=== PATIENT | female | born 1985 | race Caucasian/White ===

== ENCOUNTER → 2017-10-26 16:32 | Outpatient (CLI) | payer OTHER, SELFPAY ==
[2017-10-31 12:41] LABS: HPV APTIMA, High Risk Negative (Negative)
== END ==
PROVIDERS: Visit Provider Obstetrics & Gynecology
DX: Z12.4 Encounter for screening for malignant neoplasm of cervix (principal)
CPT/HCPCS: 88175; G0145

== ENCOUNTER 2018-02-20 16:48 | Outpatient (RCR) | payer OTHER, SELFPAY | END 2018-02-24 23:59 | LOC: NS 16:48 | PROVIDERS: Family Provider Internal Medicine; PCP Internal Medicine; Visit Provider Internal Medicine | DX: E66.9 Obesity, unspecified (principal); Z68.35 Body mass index [BMI] 35.0-35.9, adult; Z71.3 Dietary counseling and surveillance | CPT/HCPCS: 97802 ==

== ENCOUNTER 2018-03-19 16:30 | Outpatient (RCR) | payer OTHER, SELFPAY | END 2018-03-27 23:59 | LOC: NS 16:30 | PROVIDERS: Family Provider Internal Medicine; PCP Internal Medicine; Visit Provider Internal Medicine | DX: E66.9 Obesity, unspecified (principal); Z68.35 Body mass index [BMI] 35.0-35.9, adult; Z71.3 Dietary counseling and surveillance | CPT/HCPCS: 97803 ==

== ENCOUNTER → 2018-03-29 16:19 | Outpatient (CLI) | payer OTHER, SELFPAY ==
--- NOTE | 2018-03-29 16:21 | US_ITS ---
STUDY: SUPERFICIAL ULTRASOUND - RIGHT WRIST REASON FOR EXAM: Female, 32 years old. Palpable nodule TECHNIQUE: A superficial ultrasound was performed with real-time and static jimenez-scale imaging. COMPARISON: None. FINDINGS: No definite cystic or solid masses are observed.. It would be difficult to exclude possibility of lipoma and MRI would be helpful for more definitive evaluation US/Ext Non Vasc Limited/Soft Tiss IMPRESSION: No definitive sonographic evidence for solid or cystic mass MRI recommended for more definitive evaluation Electronically Signed: Candelario Pantoja MD at 17:02 EDT , Service support ,
== END ==
PROVIDERS: Family Provider Internal Medicine; PCP Internal Medicine; Visit Provider Orthopaedic Surgery
DX: M25.831 Other specified joint disorders, right wrist (principal)
CPT/HCPCS: 76882

== ENCOUNTER 2018-04-03 08:15 | Outpatient (RCR) | payer OTHER, SELFPAY | END 2018-04-03 23:59 | LOC: NS 08:15 | PROVIDERS: Family Provider Internal Medicine; PCP Internal Medicine; Visit Provider Internal Medicine | DX: E66.9 Obesity, unspecified (principal); Z68.35 Body mass index [BMI] 35.0-35.9, adult; Z71.3 Dietary counseling and surveillance | CPT/HCPCS: 97803 ==

== ENCOUNTER → 2018-04-17 16:53 | Outpatient (CLI) | payer OTHER, SELFPAY | PROVIDERS: Family Provider Internal Medicine; PCP Internal Medicine; Visit Provider Orthopaedic Surgery | DX: M25.831 Other specified joint disorders, right wrist (principal) | CPT/HCPCS: 73221 ==

== ENCOUNTER 2018-05-15 08:51 | Outpatient (RCR) | payer OTHER, SELFPAY | END 2018-05-27 23:59 | LOC: NS 08:51 | PROVIDERS: Family Provider Internal Medicine; PCP Internal Medicine; Visit Provider Internal Medicine | DX: E66.9 Obesity, unspecified (principal); Z68.35 Body mass index [BMI] 35.0-35.9, adult; Z71.3 Dietary counseling and surveillance ==

== ENCOUNTER → 2018-07-04 14:27 | Outpatient (CLI) | payer OTHER, SELFPAY ==
--- NOTE | 2018-07-04 15:43 | NEURO ---
NCS and/or EMG Patient Report Ordering Doctor: Svitlana Cook DATE OF SERVICE: 07/04/18 Torrie Shelton is a 33-year-old female presents for electrodiagnostic testing of the right upper limb. She has chief complaint of numbness and tingling in the right hand. Electrodiagnostic findings: The right median motor nerve demonstrates prolonged distal latency with normal amplitude and conduction velocity. Normal right ulnar motor response. Prolonged right median F wave. Absent right median sensory latency at the wrist. Prolonged right median palmar latency. Normal right ulnar and radial sensory responses. On needle EMG testing, all muscles tested in the right upper limb show no evidence of denervation with normal motor unit action potentials. Electrodiagnostic impression: This is an abnormal study in the right upper limb. 1. Electrodiagnostic findings demonstrate right-sided median mononeuropathy. This is consistent with a moderate to advanced right carpal tunnel syndrome. If there are any further questions, please do not hesitate to contact me
== END ==
PROVIDERS: Family Provider Internal Medicine; PCP Internal Medicine; Referring Provider Orthopaedic Surgery; Visit Provider Orthopaedic Surgery
DX: G56.01 Carpal tunnel syndrome, right upper limb (principal)
CPT/HCPCS: 95886; 95909

== ENCOUNTER 2018-09-25 11:05 | Day surgery (SDC) | payer OTHER, SELFPAY ==
[2018-09-25 11:46] VITALS: BP 122/81; PULSE 79; RESP 16; TEMP 37.5; O2SAT 96; BMI 35.6
[2018-09-25 11:46] LABS: Hematocrit 43.7 % (37-47); Hemoglobin 14.4 g/dl (12.0-15.0); Mean Corpuscular Hgb 28.2 pg (27.0-32.0); Mean Corpuscular Volume 85.7 fL (81-99); Mean Platelet Vol. 8.9 fl (6.2-12.0); Platelet Count 343 K/mm3 (150-450); RBC Distribution Width CV 13.2 % (11.6-14.6); RBC Distribution Width SD 41.5 fl (35.1-43.9); Scan Indicated on CBC? Y/N NO; White Blood Count 6.2 K/mm3 (4.4-11.0)
[2018-09-25 12:00] LABS: AST(SGOT) 12 U/L (15-37); Alanine Aminotransfer ALT/SGPT 27 U/L (13-56); Albumin, Serum 3.8 g/dL (3.2-5.0); Alkaline Phosphatase 74 U/L (45-117); Anion Gap 8 (5-15); BUN 10 mg/dL (7-18); Calcium,Total 8.4 mg/dL (8.5-10.1); Chloride 108 mmol/L (98-107); Creatinine, Serum 0.71 mg/dL (0.55-1.02); EST Glomerular Filtration Rate 101 mL/min (>60); Est Glom Filt Rate - Afr Amer 122 mL/min (>60); Estimated Creatinine Clearance 102.36 ml/min; Globulin 3.7 g/dL (2.2-4.2); Glucose 85 mg/dL (74-106); Potassium 3.8 mmol/L (3.5-5.1); Protein, Total 7.5 g/dL (6.4-8.2); Sodium Level 139 mmol/L (136-145)
[2018-09-25 12:20] LABS: Pregnancy, Serum, hCG Quali. NEGATIVE Negative (0-9 Nonpreg)
[2018-09-25] MEDS: Bupivacaine 0.5% PF 10 ML VIAL (12:49)
[2018-09-25] MEDS: MethylPREDNISolone Acetate 80 MG/ML Vial (12:49)
[2018-09-25] MEDS: Bupiv/Epi 0.5% Mpf 30 ML Vial (13:00)
--- NOTE | 2018-09-25 13:24 | PCM.DC.ORTHO ---
Discharge Diet: Light diet - advance as tolerated Discharge Activity: - - 1/2 pound restriction to right upper extremity. Encourage finger range of motion. Keep dressing on for 48 hours clean and dry then may remove and wash daily gently but do not submerge underwater until seen in the office. Elevate hand and extremity above heart times 72 hours Call your doctor if you observe: Fever of 101 or Higher, Inability to urinate, Inability to have a bowel movement, Using more than one pad per hour, Shortness of breath Suture Line Care: Avoid Pulling/Pushing Allergies/Adverse Reactions: Allergies Penicillins Allergy (Verified 09/18/18 09:26) Hives Medications to take at Discharge levonorgestrel 20 mcg/24 hr (5 years) intrauterine device 1 insert INTRAUTERINE ONCE 10/25/17 Albuterol Sulfate [Ventolin Hfa] 2 puff INHALATION ONCE PRN 09/18/18 Naproxen Sodium [Aleve] 220 mg PO PRN PRN 09/18/18 Primary Care Physician: Padmini Osuna MD [Primary Care Provider] - Test Results: Test results from this visit will be discussed in further detail at your follow-up appointment, if applicable. Please Follow Up With: Vinay Feliciano DO When: 2 weeks
[2018-09-25 13:25] VITALS: BP 118/77; BP 122/81; PULSE 92; RESP 16; TEMP 36.3; O2SAT 96
--- NOTE | 2018-09-25 13:28 | DCINST_ITS ---
Discharge Diet: Light diet - advance as tolerated Discharge Activity: - - 1/2 pound restriction to right upper extremity. Encourage finger range of motion. Keep dressing on for 48 hours clean and dry then may remove and wash daily gently but do not submerge underwater until seen in the office. Elevate hand and extremity above heart times 72 hours Call your doctor if you observe: Fever of 101 or Higher, Inability to urinate, Inability to have a bowel movement, Using more than one pad per hour, Shortness of breath Suture Line Care: Avoid Pulling/Pushing Allergies/Adverse Reactions: Allergies Penicillins Allergy (Verified 09/18/18 09:26) Hives Medications to take at Discharge levonorgestrel 20 mcg/24 hr (5 years) intrauterine device 1 insert INTRAUTERINE ONCE 10/25/17 Albuterol Sulfate [Ventolin Hfa] 2 puff INHALATION ONCE PRN 09/18/18 Naproxen Sodium [Aleve] 220 mg PO PRN PRN 09/18/18 Primary Care Physician: Padmini Osuna MD [Primary Care Provider] - Test Results: Test results from this visit will be discussed in further detail at your follow- up appointment, if applicable. Please Follow Up With: Vinay Feliciano DO When: 2 weeks
[2018-09-25 13:30] VITALS: BP 113/73; BP 122/81; PULSE 87; RESP 16; O2SAT 95
--- NOTE | 2018-09-25 13:31 | PCM.OPRPT ---
Report of Operation Date of Procedure: 09/25/18 Pre-Operative Diagnosis: Bilateral carpal tunnel syndrome Post-Operative Diagnosis: Same Surgery/Procedure Performed:: Open carpal tunnel release right. Carpal tunnel injection with steroid left Description of Surgical Findings:: Preoperative diagnosis; bilateral carpal tunnel syndrome Postoperative diagnosis; same Anesthesia: Local with MAC Tourniquet time; 13 minutes Indication for procedure; This is a 33-year-old female with long-standing symptoms consistent with carpal tunnel syndrome she did have electrodiagnostic evidence of this and has failed conservative treatment. Risks benefits and alternatives were reviewed including risks of bleeding infection nerve artery tissue damage need for further surgery and continued pain and symptoms, hypersensitivity to scar and Pillar pain. Procedure; The patient was met in the preoperative holding area the operative extremity was identified by both patient and physician and was marked she was met by anesthesia and brought back to the operating room and transferred to the operating table in the supine position anesthesia was started. A well-padded tourniquet was placed on the right upper extremity. She was prepped and draped in the usual sterile fashion. Timeout was called to ensure the proper patient procedure and extremity were being contemplated. Quarter percent Marcaine with epinephrine was injected into the incisional area. An Esmarch was used to exsanguinate the extremity. The tourniquet was inflated to 250 mmHg. A midline incision was made with a 15 blade scalpel between the thenar and hypothenar eminence. This was carried down through the skin and subcutaneous tissue. Jory retractors were then used, a deep blade scalpel was used to make a deep incision in the palmar aponeurosis. The jory retractors were then placed deep to this and the transverse carpal ligament was identified a perforation was made with a scalpel and a Metzenbaum scissors were used to complete the release of the transverse carpal ligament distally under direct visualization until the perivascular fat was reached. Then turning our attention proximally using a tension slide technique the proximal extent of the transverse carpal ligament was released there was noted to be flattening of the median nerve. The wound was thoroughly irrigated and was closed with 4-0 Prolene vertical mattress stitches. Dressing was applied in the form of Xeroform 4 x 4 web roll and an Blayne wrap tourniquet was let down there is no intraoperative complications patient tolerated the procedure well. Her left hand was then prepped with alcohol and 40 mg of Depo-Medrol and 1 cc of 0.5% Marcaine plain was injected into the carpal tunnel on the left hand. Patient was transferred to the PACU in stable condition. All counts were correct.
[2018-09-25 13:35] VITALS: BP 105/66; BP 122/81; PULSE 77; RESP 18; O2SAT 95
[2018-09-25 13:40] VITALS: BP 114/75; BP 122/81; PULSE 76; RESP 16; TEMP 36.3; O2SAT 95
[2018-09-25 14:06] VITALS: BP 122/81
== END 2018-09-25 14:33 | disposition home or self-care (01) ==
LOC: SDC 11:05 → AC 11:07
PROVIDERS: Anesthesiology; Family Provider Internal Medicine; PCP Internal Medicine; Referring Provider Orthopaedic Surgery; Visit Provider Orthopaedic Surgery
PROC: (CPT 64721; principal; 2018-09-25 12:30)
DX: G56.03 Carpal tunnel syndrome, bilateral upper limbs (principal); K21.9 Gastro-esophageal reflux disease without esophagitis; Z87.891 Personal history of nicotine dependence; J45.909 Unspecified asthma, uncomplicated
CPT/HCPCS: 20526; 64721; 80053; 84703; 85027; J7120

== ENCOUNTER → 2020-07-01 14:00 | Outpatient (CLI) | payer OTHER, SELFPAY ==
[2020-04-27 15:24] VITALS: BMI 35.6
--- NOTE | 2020-07-01 14:55 | NEURO_ITS ---
NCS and/or EMG Patient Report Ordering Doctor: Vinay Feliciano DATE OF SERVICE: 07/01/20 Torrie Shelton presents for electrodiagnostic testing of the left upper limb. She reports weakness in the left hand with pain radiating up to the shoulder. She reports numbness and tingling in the hand. Electrodiagnostic findings: Left median motor nerve demonstrates prolonged distal latency with normal amplitude and reduced conduction velocity. Left ulnar motor responses within normal limits. Prolonged left median F wave. Absent left median sensory response at the wrist and palm. Normal ulnar and radial sensory responses. On needle EMG, 1+ fibrillations are noted in the left triceps, left pronator teres. No denervation identified in the cervical paraspinals. Electrodiagnostic impression: This is an abnormal study in left upper limb. 1. Electrodiagnostic findings demonstrate left-sided median mononeuropathy. T his is consistent with a moderate to advanced left carpal tunnel syndrome. 2. Findings are suggestive of denervation in the left C7 distribution. As there is no denervation noted in the paraspinals, a definitive diagnosis of radiculopathy cannot be made. However, the patient does have clinical evidence of left triceps weakness so would give consideration of cervical spine imaging if symptoms continue. If there are any further questions, please not hesitate to contact me.
== END ==
PROVIDERS: PCP Internal Medicine; Referring Provider Orthopaedic Surgery; Visit Provider Orthopaedic Surgery
DX: G56.02 Carpal tunnel syndrome, left upper limb (principal)
CPT/HCPCS: 95886; 95910

== ENCOUNTER 2020-09-08 06:06 | Day surgery (SDC) | payer OTHER, SELFPAY ==
[2020-04-27 15:24] VITALS: BMI 35.6
[2020-09-08] VITALS (7 sets, daily range): BP systolic 96–122; BP diastolic 52–73; PULSE 75–97; RESP 16; TEMP 36.3–36.9; O2SAT 94–97; BMI 38.3
[2020-09-08] MEDS: Lactated Ringers 1,000 ML 100 ML IV (07:08)
--- NOTE | 2020-09-08 07:16 | PCM.HP.BLA ---
History and Physical Date of Admission: 09/08/20 Intake Intake Visit Reasons: LEFT WRIST Chief Complaint: left wrist Accompanied by: self Is patient in pain?: Yes Allergies Penicillins Allergy (Verified 04/17/20 13:27) Hives Medications albuterol sulfate 90 mcg/actuation aerosol inhaler 2 puff INHALATION Q8H PRN #8.5 g 10/29/19 [Rx Confirmed 08/03/20] norgestimate-ethinyl estradiol 0.18 mg/0.215mg/0.25mg-35 mcg(28)tablet 1 tab PO DAILY 08/03/20 [History Confirmed 08/03/20] [facility] Medical History (Updated 10/30/19 @ 11:40 by Richard Ward PATIENT INTAKE REPRESENTATIVE, PATIENT INTAKE REPRESENTATIVE-C) History of pilonidal cyst (Acute) Carpal tunnel syndrome (Chronic) Asthma (Chronic) Seasonal allergies (Chronic) Surgical History (Updated 10/29/19 @ 16:26 by Radha Doll) H/O wisdom tooth extraction (Acute) History of (Acute) History of carpal tunnel release (Acute) History of tonsillectomy (Acute) Family History Mother Hypertension Arthritis Crohns disease Grandmother Breast cancer Diabetes Grandfather Heart disease Myocardial infarction, Onset Age: 70 Social History (Updated 08/03/20 @ 16:[address] Vinay Feliciano DO) Smoking Status: Former smoker Tobacco: How many years used: 12 alcohol intake: never substance use type: does not use what type of physical activity do you participate in: none HPI LEFT WRIST: Details: Parts of this documentation were recorded by a scribe, this documentation accurately reflects the service provided and the decisions made by me, Dr. Vinay Feliciano DO 08/03/20 0800. BILLIE HAN is a 35 year old F here today for F/U on left hand 1st, 2nd and 3rd finger which she has had for about 1 year now. She is here to go over the EMG of her left upper extremity. To recall she did have carpal tunnel release of her right hand back in AugustTo recall she did have carpal tunnel release of her right hand back in Early 2018 with good success. Ortho Exam General General: Yes no acute distress Neurologic: Yes alert Psychologic: Yes reasonable and appropriate Right Wrist/Hand Skin/Wound: No Swelling, No Ecchymosis Left Wrist/Hand Skin/Wound: No Swelling, No Ecchymosis, Yes capillary refill normal, No erythema Left Wrist: Yes Durken's Test, Yes Tinel's and Yes Phalen's Sensation: Radial: I, Ulnar: I, Median: I Supplemental Info EMG/NCV Electrodiagnostic impression: This is an abnormal study in left upper limb. 1. Electrodiagnostic findings demonstrate left-sided median mononeuropathy. This is consistent with a moderate to advanced left carpal tunnel syndrome. 2. Findings are suggestive of denervation in the left C7 distribution. As there is no denervation noted in the paraspinals, a definitive diagnosis of radiculopathy cannot be made. However, the patient does have clinical evidence of left triceps weakness so would give consideration of cervical spine imaging if symptoms continue. Assessment & Plan Problems 1. Left carpal tunnel syndrome G56.02 Plan Patient educated that she has moderate to severe carpal tunnel syndrome of the left wrist along with some possible C-7 nerve impingement but most of her symptoms appear to be from the carpal tunnel syndrome. Recommended a left carpal tunnel release. Educated that she will have pain after surgery from the incision and the numbness and tingling will take time to return if the sensation returns. She will have restrictions for about 3 weeks. She wishes to proceed with left carpal tunnel release. Reviewed the pre-operative plans with the patient. Risks and benefits of the procedure were fully explained, including but not limited to infection, neurovascular injury, continued pain, arthritis, stiffness, need for further surgery, re-injury, DVT, PE, general risks of anesthesia, and loss of limb or life. The patient understands all the risks and does wish to proceed with written consent, she will sign consent the day of surgery. DOS set for 09/08/2020 Follow up post op or sooner if pain, swelling, numbness or associated symptoms, or concerns develop. All questions answered. Patient in agreement of plan. Coding Level of Care Code Off vis,est,level 3 Diagnoses Left carpal tunnel syndrome G56.02 I have re-examined the patient. There are no clinical changes since date of exam Procedure Criteria Procedure Type: Elective COVID Risk Discussion: The surgeon/proceduralist and patient have discussed in detail the risk of exposure to and/or potential harm posed by the COVID-19 virus with having a surgery/procedure at this time versus the risk of delaying the surgery/procedure. It is not possible to know either the risk of delaying the surgery or procedure or chance of getting an infection with perfect accuracy, but a joint decision was made between the patient and the surgeon/proceduralist to proceed at this time with the scheduled surgery/procedure as indicated on the consent form.
[2020-09-08 07:20] LABS: Internal QC Validated? YES +Cl - CLEAR BKGD; Pregnancy, Urine Negative Negative
[2020-09-08] MEDS: Bupiv/Epi 0.5% Mpf 30 ML Vial (07:42)
--- NOTE | 2020-09-08 07:58 | DCINST_ITS ---
Discharge Diet: No Restrictions Call your doctor if you observe: Shortness of breath, Chest pain Additional Instructions: Ice and elevate operative extremity next 72 hours. Keep dressing on clean and dry for 48 hours then may remove and allow warm soapy water to rinse over incision but do not submerge until sutures are out. Then apply bandaid over incision and change daily. encourage finger range of motion. Not lift more than 1/2 pound. Allergies/Adverse Reactions: Allergies Penicillins Allergy (Verified 09/08/20 06:50) Hives Medications to take at Discharge albuterol sulfate 90 mcg/actuation aerosol inhaler 2 puff INHALATION Q8H PRN #8.5 g 10/29/19 norgestimate-ethinyl estradiol 0.18 mg/0.215mg/0.25mg-35 mcg(28)tablet 1 tab PO DAILY 08/03/20 Ibuprofen [Motrin] 1 tab PO PRN PRN 09/01/20 Hydrocodone Bitart/Apap 5-325 [[place] 5MG-325MG] 1 - 2 tablet PO Q4H PRN PRN 5 Days #20 tablet 09/08/20 The following prescriptions were given: Hydrocodone Bitart/Apap 5-325 [[place] 5MG-325MG] 1 - 2 tablet PO Q4H PRN PRN 5 Days #20 tablet PRN Reason: Pain Transmission Status: Sent to [facility] Primary Care Physician: Padmini Osuna MD [Primary Care Provider] - Test Results: Test results from this visit will be discussed in further detail at your follow- up appointment, if applicable. Please Follow Up With: Vinay Feliciano DO - 2 weeks
--- NOTE | 2020-09-08 07:59 | PCM.OPRPT ---
Report of Operation Date of Procedure: 09/08/20 Description of Surgical Findings:: Preoperative diagnosis; left carpal tunnel syndrome Postoperative diagnosis; same Procedure: Left open carpal tunnel release Anesthesia: Local with MAC Tourniquet time; 9 minutes 250 mm Hg Complications: None Indication for procedure; This is a 35-year-old female with long-standing symptoms consistent with carpal tunnel syndrome the patient did have electrodiagnostic evidence of this and has failed conservative treatment. Risks benefits and alternatives were reviewed including risks of bleeding infection nerve artery tissue damage need for further surgery and continued pain and symptoms, hypersensitivity to scar and Pillar pain. Procedure; The patient was met in the preoperative holding area the operative extremity was identified by both patient and physician and was marked the patient was met by anesthesia and brought back to the operating room and transferred to the operating table in the supine position. Aanesthesia was started. A well-padded tourniquet was placed on the operative upper extremity. The patient was prepped and draped in the usual sterile fashion. A timeout was called to ensure the proper patient procedure and extremity were being contemplated. 0.5 percent Marcaine with epinephrine was injected into the incisional area. An Esmarch was used to exsanguinate the extremity. The tourniquet was inflated to 250 mmHg. A midline incision was made with a 15 blade scalpel between the thenar and hypothenar eminence. This was carried down through the skin and subcutaneous tissue. Jory retractors were then used, a deep blade scalpel was used to make a deep incision in the palmar aponeurosis. The jory retractors were then placed deep to this and the transverse carpal ligament was identified a perforation was made with a scalpel and a Littler scissors were used to complete the release of the transverse carpal ligament distally under direct visualization with the tips facing ulnarly until the perivascular fat was reached. Then turning our attention proximally using a tension slide technique the proximal extent of the transverse carpal ligament was released . There was noted to be hourglass configuration to the median nerve and hypertrophy of the transverse carpal ligament without other findings. The wound was thoroughly irrigated and was closed with 4-0 prolene vertical mattress stitches. Dressing was applied in the form of xeroform 4 x 4, web roll and an madi wrap. Tourniquet was let down there is no intraoperative complications patient tolerated the procedure well and was transferred to the PACU. All counts were correct.
== END 2020-09-08 09:23 | disposition home or self-care (01) ==
LOC: SDC 06:08 → AC 06:08
PROVIDERS: Anesthesiology; PCP Internal Medicine; Referring Provider Orthopaedic Surgery; Visit Provider Orthopaedic Surgery
PROC: (CPT 64721; principal; 2020-09-08 07:15)
DX: G56.02 Carpal tunnel syndrome, left upper limb (principal); Z20.828 Contact with and (suspected) exposure to other viral communicable diseases; J45.909 Unspecified asthma, uncomplicated; Z86.2 Personal history of diseases of the blood and blood-forming organs and certain disorders involving the immune mechanism; Z87.891 Personal history of nicotine dependence
CPT/HCPCS: 01810; 64721; 81025; 87426; C9803; J7120; A4216; J2405

== ENCOUNTER 2020-10-11 20:45 | Emergency (ER) | payer OTHER, SELFPAY ==
[2020-10-11 20:46] VITALS: BP 143/100; PULSE 91; RESP 18; TEMP 36.2; O2SAT 97; BMI 37.4
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
[2020-10-11] MEDS: Aspirin 325 MG Tablet PO (21:04)
[2020-10-11] MEDS: HYDROcodone Bitartrate/Apap 5/325 Tablet PO (21:04)
== END 2020-10-11 21:29 | disposition home or self-care (01) ==
LOC: ED 21:09
PROVIDERS: Emergency Provider Emergency Medicine; PCP Internal Medicine
DX: T23.041A Burn of unspecified degree of multiple right fingers (nail), including thumb, initial encounter (principal); X19.XXXA Contact with other heat and hot substances, initial encounter; Y93.9 Activity, unspecified; Y92.9 Unspecified place or not applicable; J45.909 Unspecified asthma, uncomplicated; Z87.891 Personal history of nicotine dependence
CPT/HCPCS: 99283

== ENCOUNTER → 2021-07-06 | Outpatient (CLI) | payer OTHER, SELFPAY | END | disposition home or self-care (01) | LOC: LABSPEC 14:03 | PROVIDERS: PCP Internal Medicine; Referring Provider Physician Assistant; Visit Provider Physician Assistant | DX: R05.9 Cough, unspecified (principal) | CPT/HCPCS: 87635; U0005; U0003 ==

== ENCOUNTER → 2021-08-24 | Outpatient (CLI) | payer OTHER, SELFPAY ==
[2021-08-30 14:11] LABS: HPV APTIMA, High Risk Negative (Negative)
== END | disposition home or self-care (01) ==
LOC: LABSPEC 15:02
PROVIDERS: PCP Internal Medicine; Visit Provider Obstetrics & Gynecology
DX: Z12.4 Encounter for screening for malignant neoplasm of cervix (principal)
CPT/HCPCS: 87624; 88175; G0145

== ENCOUNTER 2021-09-07 17:21 | Outpatient (CLI) | payer OTHER, SELFPAY ==
[2021-09-07 17:30] VITALS: BP 155/103; PULSE 102; RESP 16; TEMP 36.6; O2SAT 98; BMI 38.2
[2021-09-07] MEDS: 0.9% Saline Lock 10 ML Syringe IV (17:41)
[2021-09-07] MEDS: MethylPREDNISolone 125 MG/2 ML Vial IV (18:03)
--- NOTE | 2021-09-07 18:03 | NURSING ---
Pt c/o lower back pain w/ flushing. Infusion stopped x5 minutes and solumedrol administered. Once symptoms subsided infusion restarted at 155ml/hr.
[2021-09-07 18:29] VITALS: BP 129/94; PULSE 92; RESP 16; TEMP 36.8; O2SAT 98
--- NOTE | 2021-09-07 18:29 | NURSING ---
Pt tolerated remaining infusion w/o further flushing or lower back pain.
[2021-09-07 19:28] VITALS: BP 137/91; PULSE 94; RESP 16; TEMP 37.1; O2SAT 98
== END 2021-09-07 23:59 | disposition home or self-care (01) ==
LOC: MS3OUT 17:21 → MS3 17:22
PROVIDERS: PCP Internal Medicine; Referring Provider Nurse Practitioner Adult Health; Visit Provider Nurse Practitioner Adult Health
DX: U07.1 COVID-19 (principal)
CPT/HCPCS: J7050; M0243; A4216; Q0244

== ENCOUNTER → 2021-12-21 | Outpatient (CLI) | payer OTHER, SELFPAY ==
--- NOTE | 2021-12-21 12:35 | PFTCOMP ---
COMPLETE PULMONARY FUNCTION TEST INTERPRETATION Brief HPI: Patient is a 36-year old female, currently under the care of Flako Dueñas, who presents to [facility] for complete pulmonary function tests secondary to diagnosis of asthma. Respiratory therapist reports good effort and reproducible results. Interpretation: Forced expiration spirometry shows no large airways obstructive ventilatory defect with an FEV1 of 94% predicted. There is no significant bronchodilator response by strict ATS criteria. Spirograms are of good quality and plateau normally. The respiratory flow volume loop shows a normal pattern. Lung volumes by body plethysmography show a normal total lung capacity at 4.98 L, 94% predicted. All other lung volumes are within normal limits. Diffusion capacity by carbon monoxide is normal at 90% predicted. The airway resistance is normal. No previous pulmonary function tests were available for review. Impression: These pulmonary function tests are within normal limits
== END | disposition home or self-care (01) ==
LOC: PSN 07:05
PROVIDERS: PCP Internal Medicine; Referring Provider Physician Assistant; Visit Provider Physician Assistant
DX: J45.909 Unspecified asthma, uncomplicated (principal)
CPT/HCPCS: 94060; 94726; 94729

== ENCOUNTER 2022-02-10 10:21 | Day surgery (SDC) | payer OTHER, SELFPAY ==
[2022-02-10 11:03] LABS: Internal QC Validated? YES +Cl - CLEAR BKGD; Pregnancy, Urine Negative Negative
[2022-02-10 11:25] VITALS: BP 141/91; PULSE 70; RESP 98; TEMP 36.7; O2SAT 98; BMI 39.6
--- NOTE | 2022-02-10 11:28 | PCM.HP.BLA ---
History and Physical Date of Admission: 02/10/22 Surgical History and Physical Date: 02/08/2022 Name: TORRIE HAN Age: 36 Date of : 1985 Torrie Han, a 36 year old female 1 0 0 0 1, presents for Laparoscopic bilateral salpingectomy on February 10, 2022 at . MEDICATIONS HISTORY: Current medications prescribed by our practice are: 1. Ortho Tri-Cyclen (28) 0.18 mg(7)/0.215 mg(7)/0.25 mg(7)-35 mcg tablet, One pill by mouth once a day for 3 weeks then start new pack 2. spironolactone 50 mg tablet, 1 tab po bid Patient is also takin. ProAir HFA 90 mcg/actuation HFA aerosol inhaler, As Directed ALLERGIES: Pcn, Hives, penicillin and Hives and/or rash Infections - Chicken pox Illnesses - asthma and as a child Accidents - None Hospitalizations - see surgery and as child for asthma h/o HPV at age 19 but all pap's have been normal; Review of Systems: GENERAL - Denies fever, or chills SKIN - Denies skin changes EYES - Denies visual changes EARS - Denies difficulty hearing NOSE - Denies nasal congestion or bleeding MOUTH - Denies sore throat or difficulty swallowing NECK - Denies pain or swelling RESPIRATORY - Denies shortness of breath or wheezing CARDIOVASCULAR - Denies palpitations or chest pain GASTROINTESTINAL - Denies nausea, vomiting, diarrhea, constipation GENITOURINARY - Denies dysuria, frequency of urination, incontinence of urine MUSCULOSKELETAL - Denies joint or muscle pain NEUROLOGICAL - Denies localized numbness or weakness PSYCHIATRIC - Denies depression or anxiety ENDOCRINE - Denies heat or cold intolerance, weight loss or gain HEMATO-IMMUNOLOGIC - Denies excesive bleeding with cuts SOCIAL HISTORY: Alcohol Use - denies drinking Smoking - used to smoke but quit and May 2014 Diet - no special diet Lifestyle - Exercise - none Seat Belt Use - always Employer - [employer] 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 Maternal Grandmother: Breast cancer and DM II. MENSTRUAL HISTORY: LMP Known?- ApproximateAmount/Duration - 4-5 days, Regularity - Irregular, Frequency - variable days, LMP - 01/24/22, Age Onset Menarche - 12 PAST PREGNANCIES: Total Pregnancies - 1; Full Term Pregnancies - 1; Premature - 0; Abortions, Induced - 0; Abortions, Spontaneous - 0; Ectopics - 0; Multiple Births - 0; Living Children - 1 SURGICAL HISTORY: 1. pilonidal cyst 2004 ; - 2. T and A, 1997 ; - 3. Right wrist carpel tunnel Sep 2018 ; - 4. 04/16/2015 Primary ; Jese Dorsey M.D. - [facility] PHYSICAL EXAM BP- 136/94 Sitting, Right arm, large cuff Temp- 98.3 Taken Orally Weight- 241.32078 lbs Height- 64.25 inch BMI:[id number] CONSTITUTIONAL - NAD, well nourished, and well developed SKIN - No rash, lesions, or ulcers HEENT - normocephalic, atraumatic, sclerae anicteric LUNGS - CTA x2 without wheezes, crackles or rales CARDIAC - Regular rate and rhythm without rubs, murmurs, or gallops ABDOMEN - Without hepatosplenomegaly, distention, masses, rebound, or guarding; normal bowel sounds; no hernias EXTREMITIES - No edema or calf tenderness NEUROLOGICAL - normal gait, normal balance, normal motor PSYCHIATRIC - A and O to time, place, person, mood and affect ASSESSMENT/PLAN: 1. Encounter For General Counseling And Advice On Contraception and Encounter For Sterilization Plan for laparoscopic bilateral salpingectomy Procedural r/b/i/a reviewed Consent signed Preop packet reviewed Assessment & Plan Assessment/Plan (1) Request for sterilization: PLAN: Plan for laparoscopic bilateral salpingectomy
[2022-02-10 11:29] LABS: Hematocrit 41.2 % (37-47); Hemoglobin 13.5 g/dL (12.0-15.0); Mean Corp Hgb Conc 32.8 g/dL (32-36); Mean Corpuscular Hgb 28.1 pg (27.0-32.0); Mean Corpuscular Volume 85.7 fL (81-99); Mean Platelet Vol. 8.9 fl (6.2-12.0); Platelet Count 366 K/mm3 (150-450); RBC Distribution Width CV 12.6 % (11.6-14.6); RBC Distribution Width SD 39.6 fl (35.1-43.9); Red Blood Count 4.81 M/mm3 (4.2-5.4); White Blood Count 6.9 K/mm3 (4.4-11.0)
[2022-02-10] MEDS: Lactated Ringers 1,000 ML 15 ML IV (11:30)
[2022-02-10 11:40] LABS: Partial Thromboplast Time 23.2 Seconds (24.1-36.2); Prothrombin Time (Protime)PT. 13.2 SECONDS (11.7-14.9)
[2022-02-10 11:45] LABS: Anion Gap 6 (5-15); BUN 7 mg/dL (7-18); BUN/Creat Ratio 9.6 RATIO (10-20); Chloride 105 mmol/L (98-107); Creatinine, Serum 0.73 mg/dL (0.55-1.02); EST Glomerular Filtration Rate 96 mL/min (>60); Est Glom Filt Rate - Afr Amer 116 mL/min (>60); Estimated Creatinine Clearance 96.79 ml/min; Glucose 86 mg/dL (74-106); Potassium 3.7 mmol/L (3.5-5.1); Sodium Level 138 mmol/L (136-145)
== END 2022-02-10 12:19 | disposition home or self-care (01) ==
LOC: SDC 10:22 → AC 10:23
PROVIDERS: Anesthesiology; PCP Internal Medicine; Referring Provider Obstetrics & Gynecology; Visit Provider Obstetrics & Gynecology
DX: Z53.8 Procedure and treatment not carried out for other reasons (principal)
CPT/HCPCS: 80048; 81025; 85027; 85610; 85730; 86850; 86900; 86901; J7120; J2405

== ENCOUNTER 2022-03-17 08:55 | Day surgery (SDC) | payer OTHER, SELFPAY ==
[2022-03-14 08:22] LABS: Hemoglobin 13.3 g/dL (12.0-15.0); Mean Corp Hgb Conc 32.4 g/dL (32-36); Mean Corpuscular Hgb 28.1 pg (27.0-32.0); Mean Corpuscular Volume 86.5 fL (81-99); Mean Platelet Vol. 9.4 fl (6.2-12.0); Platelet Count 349 K/mm3 (150-450); RBC Distribution Width CV 12.5 % (11.6-14.6); RBC Distribution Width SD 39.7 fl (35.1-43.9); Red Blood Count 4.74 M/mm3 (4.2-5.4); White Blood Count 6.9 K/mm3 (4.4-11.0)
[2022-03-17] VITALS (8 sets, daily range): BP systolic 116–148; BP diastolic 72–94; PULSE 53–95; RESP 14–18; TEMP 36.5–36.8; O2SAT 94–99; BMI 39.9
--- NOTE | 2022-03-17 08:45 | PCM.HP.BLA ---
History and Physical Date of Admission: 03/17/22 HPI: 36-year-old female desires permanent sterilization. Medical history: 1. Asthma Surgical history: 1. Pilonidal cyst 2. Tonsillectomy and adenoidectomy 3. Right carpal tunnel syndrome surgery 4. Primary section Medications: 1. OCP 2. Spironolactone 3. Pro air Family history: Noncontributory Social history: Denies tobacco, alcohol, drug use. Former smoker Allergies: Penicillin Review of system: Negative for fevers, chills, chest pain or shortness of breath, nausea or vomiting, diarrhea or constipation, skin changes, heat or cold intolerance. Physical exam Blood pressure 120/94, weight 242 pounds General: No acute distress, HEENT: Normocephalic/atraumatic, PERRLA Cardiac: Regular rate and rhythm no murmurs rubs or gallops Lungs: Clear to auscultation bilaterally Abdomen: Soft, nontender Extremities: No edema Musculoskeletal: Strength out of 5 throughout all extremities Neurologic: No focal deficits Assessment/plan: 36-year-old female desires permanent sterilization. Plan for laparoscopic bilateral salpingectomy. All risk, benefits, alternatives discussed with patient. Risk clued but not limited to: Risk of bleeding to the point transfusion, infection, injury to surrounding tissue including bowel/bladder/major abdominal vessels, VTE, ICU mission. Patient aware and consented. Aware this is a permanent procedure.
--- NOTE | 2022-03-17 09:19 | OP.PCM_ITS ---
Report of Operation Date of Procedure: 03/17/22 Pre-Operative Diagnosis: Desires permanent sterilization Post-Operative Diagnosis: Desires permanent sterilization Surgery/Procedure Performed:: Laparoscopic bilateral salpingectomy, ovarian cyst drainage and cystectomy Description of Surgical Findings:: Normal-appearing external genitalia. Minimal uterine descensus. Normal- appearing fallopian tubes. Normal-appearing left ovary. Large simple right ovarian cyst, drain yellow clear fluid, 90cc. Omentum adhesed to anterior abdominal wall left side, lateral to the infraumbilical region, trocar did not go through omentum. Type of Anesthesia: General Specimen's removed: Bilateral fallopian tubes, ovarian cyst wall Estimated Blood Loss (mL): 5 cc Fluids Replaced: 500 cc Description of Procedure: Indications/risk/benefits: 36-year-old female who desires permanent sterilization. Plan for laparoscopic bilateral salpingectomy. All risk, benefits, alternatives discussed with patient. Risk include but are not limited to: Bleeding to the point transfusion, infection, injury to surrounding tissue including bowel/bladder/major abdominal vessels, VTE, ICU admission. Patient aware and consented. Patient aware sterilization is permanent. Procedure: Patient taken to the operating room and placed under general anesthesia. Prepped and draped in the usual sterile fashion. Weighted speculum placed in the posterior vagina and Huertas retractor used to visualize the cervix. Anterior lip of cervix grasped with single-tooth tenaculum. Cervix gradually dilated. Sargis manipulator placed. Esquivel catheter placed. Gloves were changed and attention turned to the anterior abdominal wall. 5 mm horizontal infraumbilical incision made, 5 mm trocar placed under direct visualization. Left lower quadrant incision made and trocar placed under direct visualization. Lower quadrant incision made an 8 mm trocar placed under direct visualization. Inspection of the pelvis completed with findings as above. LigaSure open. Ovarian cyst ruptured while trying to lift out of the posterior cul-de-sac. Drained clear fluid as above. Right ovary grasped and cyst wall removed using LigaSure device. Ovarian cyst wall placed in the posterior cul-de-sac. Right fallopian tube identified and carried from cornua to fimbriated end. Fimbriated end grasped and LigaSure utilized to coagulate and cut along the mesosalpinx underneath the fallopian tube. Right fallopian tube removed through trocar. Left fallopian tube identified from cornua to fimbriated end. Fimbriated end grasped and elevated, LigaSure device utilized to remove fallopian tube in a similar fashion. Fallopian tube removed through trocar. Some oozing noted at the mesosalpinx near the ovary, hemostatic with coagulation. Right ovary inspected, appeared hemostatic. Ovarian cyst wall grasped and Endo Catch bag placed through the 8 mm trocar. Ovarian cyst placed into Endo Catch bag. Endo Catch bag removed through trocar site. Inspection of mesosalpinx and right ovary completed again, noting hemostasis. Radhames placed. Insufflation stopped, trochars removed. Incisions closed with subcuticular stitch and skin glue. Esquivel catheter removed and uterine manipulator removed. At the end of procedure all needle, lap, sponge counts were correct. Urine output: 500 cc Complications None
[2022-03-17] MEDS: Lactated Ringers 1,000 ML 15 ML IV ×2 (09:26→11:56)
[2022-03-17 09:28] LABS: Internal QC Validated? YES +Cl - CLEAR BKGD; Pregnancy, Urine Negative Negative
[2022-03-17] MEDS: Scopolamine 1mg/72hr Patch 1 PATCH TD (09:41)
--- NOTE | 2022-03-17 10:35 | OV_PTH ---
PATIENT: BILLIE HAN LOC: [facility] [place] U#:[id number] AGE/SX: 36/F ROOM: RE03/17/[address]: Dr. Brenda Arana DO : 1985 BED: DIS: 03/17/2022 SPEC #: [id number] RECD: 03/17/22 13:18 STATUS: MARYAM REJeison #: [id number] NEIL: 03/17/22 10:[address]: Brenda Arana DEPT: SURGICAL PATHOLOGY RECD BY: Jocelyn Crisostomo ENTERED: 03/18/22 08:15 SP TYPE: OVARY OTHR DR: MD Dr. Padmini Olmedo MD Tissues: A - Fallopian tube B - OVARIAN CYST Procedures: Surgery Specimen Level II Surgery Specimen Level IV HEADER OPERATION: Laparoscopic salpingectomy, right ovarian cystectomy PRE-OP DIAGNOSIS: Sterilization TISSUE SUBMITTED: A ? Bilateral portion fallopian tubes, B ? Right ovarian cyst MICROSCOPIC DIAGNOSIS A. Right and left fallopian tubes, bilateral salpingectomies: No pathologic change. B. Right ovarian cyst, excision: Hemorrhagic corpus luteal cyst. AM:jay 03/21/2022 MICROSCOPIC DESCRIPTION Slides are reviewed. GROSS DESCRIPTION A - Received in fixative is one container labeled with the patient's name and designated portion of bilateral fallopian tubes. The specimen consists of two fallopian tubes with an average length of 6.5 cm and has an average diameter of 0.4 cm. Both fallopian tubes have normal fimbriated ends. No mass lesions are identified. Expediter Service Order sections are submitted in two cassettes as follows: 1 - one fallopian tube, 2 - the other fallopian tube. B - Received in fixative is one container labeled with the patient's name and designated right ovarian cyst. The specimen consists of a smooth, glistening light to dark copeland cystic structure measuring 6 x 3 x 1 cm. The external surface is smooth and glistening. The inner lining is somewhat irregular with no papillary excrescences or projections identified. The external surface is inked. Expediter Service Order sections are submitted in two cassettes. / AM:jay 03/18/2022 TC:5 CPT: 79694 x2, 74844
--- NOTE | 2022-03-17 11:06 | DCINST_ITS ---
Discharge Instructions Diet Discharge Diet: No restrictions Activity Discharge Activity: Return to Normal Activity and May Shower May resume sexual activity in: 2 weeks Weight Bearing Status: Weight bearing as tolerated Lifting Restrictions: Nothing over 25 pounds Dressing / Incision Call your doctor if your incision/area has: Continuous Slow Oozing, Increased Redness and Foul Smelling Discharge Call your doctor if you observe: Fever of 101 or Higher, Change in Color, Inability to urinate, Using more than 1 pad per hour, Shortness of breath, Dizziness, Swelling in the ankles, Chest pain and Calf discomfort Cleanse incision/area with: Soap & Water and Keep Dressing Clean & Dry Follow Up Care Please Follow Up With: Brenda Arana DO When: 1-2 week postoperative visit Test Results: Test results from this visit will be discussed in further detail at your follow- up appointment, if applicable. Discharge Plan Admission Primary Reason for Your Visit: Tubal sterilization, ovarian cystectomy Attending Provider: Brenda Arana Primary Care Provider: Padmini Osuna Consulting Providers: Valente Adair Discharge Orders/Prescriptions Prescriptions: New oxycodone 5 mg tablet 5 mg PO Q6H PRN (Reason: pain) 3 Days Qty: 10 0RF Continued ibuprofen 200 MG tablet 1 tab PO PRN PRN (Reason: Pain 1-10 Or Fever) albuterol sulfate [ProAir HFA] 90 mcg/actuation Hfa Aerosol Inhaler 1 inh INHALATION Q6H PRN (Reason: Shortness Of Breath) spironolactone 50 mg tablet 50 mg PO BID diphenhydramine HCl [Benadryl] 25 mg Capsule 25 mg PO TID PRN (Reason: Sleep) calcium carbonate [Tums] 300 mg (750 mg) Tablet,Chewable 300 mg PO TID PRN (Reason: Indigestion) Discontinued norgestimate-ethinyl estradiol [Ortho Tri-Cyclen (28)] 0.18/0.215/0.25 mg-35 mcg (28) tablet 1 tab PO DAILY Referrals / Follow Up: Padmini Osuna MD [Primary Care Provider] - Disposition Disposition (needs filled in before D/C Order can be placed): Home, Self Care
[2022-03-17] MEDS: HYDROcodone Bitartrate/Apap 5/325 Tablet PO (12:30)
== END 2022-03-17 13:25 | disposition home or self-care (01) ==
LOC: SDC 08:55 → AC 08:56
PROVIDERS: Anesthesiology; PCP Internal Medicine; Referring Provider Student in an Organized Health Care Education/Training Program; Visit Provider Student in an Organized Health Care Education/Training Program
PROC: (CPT 58661; principal; 2022-03-17 10:20)
DX: Z30.2 Encounter for sterilization (principal); N83.11 Corpus luteum cyst of right ovary; Z87.891 Personal history of nicotine dependence; J45.909 Unspecified asthma, uncomplicated; E66.9 Obesity, unspecified; G25.81 Restless legs syndrome; Z68.39 Body mass index [BMI] 39.0-39.9, adult
CPT/HCPCS: 58661; 58662; 00840; 36415; 81025; 85027; 86850; 86900; 86901; 88302; 88305; J7120; J2405

== ENCOUNTER → 2022-09-05 | Outpatient (CLI) | payer OTHER, SELFPAY ==
[2022-09-05 16:59] LABS: Hemoglobin A1c 5.4 % (3.8-5.6)
[2022-09-05 17:28] LABS: Progesterone Level 0.21 ng/mL (See Comment)
[2022-09-05 17:31] LABS: Estradiol 119.5 pg/mL; Follicle Stimulating Hormone 6.7 mIU/mL; Luteinizing Hormone 15.1 mIU/mL
[2022-09-09 19:07] LABS: Testosterone, % Free 1.59 % (0.50-2.80); Testosterone, Free 0.43 ng/dL (0.10-0.85); Testosterone, Total 27 ng/dL (8-60)
== END | disposition home or self-care (01) ==
LOC: WOBLAB 15:56
PROVIDERS: PCP Internal Medicine; Visit Provider Student in an Organized Health Care Education/Training Program
DX: L70.0 Acne vulgaris (principal)
CPT/HCPCS: 36415; 82627; 82670; 83001; 83002; 83036; 84144; 84402; 84403; 82626

== ENCOUNTER 2023-03-13 13:16 | Emergency (ER) | payer OTHER, SELFPAY ==
[2023-03-13 13:18] VITALS: BP 172/110; PULSE 131; RESP 14; TEMP 36.7; O2SAT 98; BMI 40.6
--- NOTE | 2023-03-13 13:44 | US_ITS ---
INDICATION: PAIN EXAMINATION: Ultrasound US right upper quadrant TECHNIQUE: Bradley-scale and color Doppler imaging was performed of the abdomen. Imaging was mildly degraded as the patient had eaten 1 hour prior to the exam. COMPARISON: None. FINDINGS: LIVER: Enlarged, measuring 21.9 cm. Diffuse, mildly heterogeneous echotexture. No evidence of a mass. No intrahepatic duct dilation. The patent portal vein flow is hepatopedal. GALLBLADDER: Non-distended. No evidence of a stone or sludge. Normal wall thickness of 1 mm. No pericholecystic fluid. Negative sonographic Key''s sign. COMMON BILE DUCT: Normal measuring 3.3 mm in diameter. PANCREAS: Visualized portions of the pancreas appear normal. RIGHT KIDNEY: Normal size, measuring 13.45 x 5.33 x 5.03 cm. Renal cortical thickness is 1.35 cm. No demonstrated mass. No hydronephrosis. US/Gallbladder IMPRESSION: Hepatomegaly with steatosis. Electronically Signed: Jett Ruvalcaba MD at 15:08 EDT Reading Location ID and State: [id number] / Unknown , Service support ,
--- NOTE | 2023-03-13 13:46 | ED.VIS.GI ---
HPI HPI - GI History of Present Illness Chief Complaint: Flank Pain Informant: patient Abdominal Pain/Flank Pain Onset: Days Context: Gradual Onset Timing: Continuous Quality: Aching Current Severity: Mild Maximum Severity: Mild Worsened by: Nothing Relieved by: Nothing Nausea/Vomiting/Emesis GI Symptom: Positive for Nausea; Negative for Vomiting Onset: Days Severity: Moderate Diarrhea/Melena/Hematochezia GI Symptom: Positive for Diarrhea Onset: Days Stool Quality: Positive for Loose Severity: Mild Associated Symptoms Associated Symptoms: Negative for Dysuria, Frequency, Hematuria or Urgency Narrative Narrative: 37-year-old female history of asthma. Prior tubal ligation. States she has had right flank pain for a week since Monday a week ago. Fever as high as 101. Body aches. Says she has been taking Motrin. Never anything like this before. Denies any dysuria or hematuria. No history of gallstones. She is never had any abdominal surgery besides a tubal ligation. She is associated nausea without vomiting. Prior similar symptoms: No Recent Illness/Hospitalization: No PFSH PFSH Medical History Asthma Asthma Asthma Carpal tunnel syndrome Elevated liver enzymes Encounter for preventative adult health care examination Heartburn History of pilonidal cyst History of steroid therapy Leg cramps Preventative health care Restless legs Seasonal allergies Shortness of breath on exertion Home Medications ibuprofen 200 mg tablet 1 tab PO PRN PRN Pain 1-10 Or Fever 09/01/20 [History Last Taken Unknown] albuterol sulfate 90 mcg/actuation aerosol inhaler (ProAir HFA) 1 inh inhalation Q6H PRN Shortness Of Breath 09/07/21 [History Last Taken Unknown] diphenhydramine HCl 25 mg capsule (Benadryl) 25 mg PO TID PRN Sleep 02/03/22 [History Last Taken Unknown] calcium carbonate 300 mg (750 mg) chewable tablet (Tums) 300 mg PO TID PRN Indigestion 03/11/22 [History Last Taken Unknown] Allergy/AdvReac Type Severity Reaction Status Date / Time Penicillins Allergy Hives Verified 03/13/23 13:18 Family History Mother Hypertension Arthritis Crohns disease Grandmother Breast cancer Diabetes Grandfather Heart disease Myocardial infarction, Onset Age: 70 Surgical History H/O wisdom tooth extraction History of History of carpal tunnel release History of salpingectomy History of tonsillectomy Social History Smoking Status: Former smoker Tobacco: How many years used: 12 alcohol intake: never substance use type: does not use what type of physical activity do you participate in: none ROS ROS ED ROS Narrative Right upper quadrant abdominal pain. Fever. Nausea. Review of Systems ROS Unobtainable: Denies due to encephalopathy Constitutional Constitutional ED: Reports fever(s); Denies chills ENT ENT ED: Denies ear pain Cardiovascular Cardiovascular: Denies chest pain Respiratory/Chest Respiratory/Chest: Denies cough or dyspnea Gastrointestinal Gastrointestinal: Reports abdominal pain, diarrhea and nausea; Denies constipation, melena or vomiting Genitourinary Genitourinary ED: Denies dysuria or hematuria Musculoskeletal Musculoskeletal: Denies arthralgias or back pain Integumentary Denies abscess or Abrasions Neurologic Neurologic: Denies headache(s) Psychiatric Psychiatric: Denies anxiety Endocrine Endocrinology: Denies polydipsia Hematologic/Lymphatic Hematologic/Lymphatic: Denies easy bleeding Allergic/Immunologic Allergic/Immunologic ED: Denies mouth swelling, tongue swelling or urticaria EXAM Physical Exam Narrative Exam Narrative: Well-appearing 37-year-old female. Vital signs are stable. Temperature 98.1. She is tachycardic at 130. H EENT exam unremarkable. Posterior pharynx normal. Moist weeks membranes. Neck nontender no lymphadenopathy. Lungs clear to auscultation bilaterally. Heart tachycardic rate about 120 no murmur. Abdomen soft, nondistended, normal bowel sounds without peritoneal signs. She does have right upper quadrant tenderness. But not a true Key sign. Right lower quadrant and the other quadrants are nontender. There is no ecchymosis or bruising. Back is nontender. Moving all 4 extremities. Nontender no edema. Neurologically she is awake and alert with no focal motor deficits. Const Vital Signs: 03/13/23 13:18 Temperature 98.1 F Temperature Source Temporal Pulse Rate 131 H Respiratory Rate 14 Blood Pressure 172/110 H Blood Pressure Mean 130 Pulse Ox 98 Oxygen Delivery Method Room Air Positive well nourished and well developed; Negative for cachectic, contractures or unkempt General Appearance ED: well developed and NAD; Negative for unkempt, cachectic, contractures or pallor Nutritional Appearance: Negative for cachectic HEENT Reports moist mucous membranes; Denies dry mucous membranes normocephalic and atraumatic; Negative for trauma or tenderness Mouth ED: No dry mucous membranes Mouth: No dry mucous membranes Eyes PERRL and EOMs intact bilaterally General Eye ED: Negative for pale conjunctiva or scleral icterus Neck no lymphadenopathy, supple and no JVD General: Negative for tenderness Carotids: Negative for other Lymph Lymphatic: Negative for other Resp normal respiratory effort and clear to auscultation bilaterally Effort and Inspection: Negative for respiratory distress Auscultation: Negative for rales, rhonchi or wheezes Cardio regular rhythm, S1 normal heart sound, S2 normal heart sound and no murmurs; Negative for regular rate Rate: tachycardic Rhythm: Negative for abnormal rhythm GI non-distended and no masses; Negative for non-tender GI Narrative: Right upper quadrant tenderness only. No peritoneal signs. No McBurney's point tenderness. No Key sign. Inspection: Negative for abdominal distention Auscultation: normoactive bowel sounds Palpation: soft and tender RUQ; Negative for guarding Back/Spine no CVA tenderness General Back: Negative for CVA tenderness Cervical Spine: Negative for cervical spine tenderness Thoracic Spine / Upper Back: Negative for thoracic spinal tenderness Lumbar Spine / Lower Back: Negative for lumbar spinal tenderness Coccyx: Negative for other Extremity full ROM General Extremety ED: Negative for edema or tenderness General Extremity: Negative for edema Neuro CN's II-XII intact bilaterally and moves all extremities Sensorium / Orientation: alert, oriented to person, oriented to place and oriented to time; Negative for orientation impaired, confused, lethargic or stuporous Motor Exam: strength 5/5 throughout Psych mental status grossly normal and thought process normal Appearance: Negative for unkempt Attitude: No agitated Mood & Affect: Negative for depressed, anxious or tearful Skin no wounds General Skin Exam: Negative for jaundice or pallor Lesions: no lesions Rashes: no rashes Trauma: Negative for abrasion Nails: Negative for discolored MDM MDM MDM Narrative Medical decision making narrative: 37-year-old female right upper quadrant abdominal pain low grade fever for about a week. No urinary symptoms. Exam she has abdominal tenderness. My initial concern is for gallbladder disease or infection. Acute cholecystitis. This could be a urinary tract infection or stone with infection I think less likely. We will do labs and a urinalysis. I Laura start with an ultrasound of her right upper quadrant if its unremarkable she may or may not need a CAT scan. She did not anything for pain but I did give her Zofran for nausea and some IV fluids. Repeat exam patient doing well at 3:05 PM. Awaiting ultrasound results. Her nausea resolved with the IV Zofran. She and I went over blood test. She still has right upper quadrant abdominal tenderness. History & Record Review Discussion w/independent historian: Patient Additional record(s) reviewed:: Prior inpatient record, Prior outpatient record, Prior ED visit and Prior labs Lab Data Attestation: I reviewed the patient's lab results. Lab results narrative: CBC shows a white count 10.4. H&H 14.2 and 44. Platelets 247. Serum test is negative. Urinalysis is negative. No white or red cells. No nitrates. No bacteria. Electrolytes show a gap of 8. Normal BUN and creatinine. Glucose 131. Lipase normal at 32. Liver enzymes are unremarkable except for AST is 66. ALT 79. Labs: Laboratory Results - last 24 hr 03/13/23 13:25 WBC 10.4 RBC 5.35 Hgb 14.2 Hct 44.1 MCV 82.4 MCH 26.5 L MCHC 32.2 RDW Std Deviation 42.7 RDW Coeff of Arnulfo 14.6 Plt Count 247 MPV 9.3 Immature Gran % (Auto) 1.100 H Neut % (Auto) 31.6 L Lymph % (Auto) 61.[address] [place] % (Auto) 4.2 Eos % (Auto) 0.4 Baso % (Auto) 1.0 Absolute Neuts (auto) 3.3 Absolute Lymphs (auto) 6.40 H Nucleated RBC % 0 Differential Comment SCANNED Sodium 137 Potassium 3.8 Chloride 105 Carbon Dioxide 24.0 Anion Gap 8 BUN 5 L Creatinine 0.89 Estim Creat Clear Calc 78.63 Est GFR (MDRD) Af Amer 92 Est GFR (MDRD) Non-Af 76 BUN/Creatinine Ratio 5.6 L Glucose 151 H Calcium 8.9 Total Bilirubin 0.50 AST 66 H ALT 79 H Alkaline Phosphatase 83 Total Protein 7.2 Albumin 3.1 L Globulin 4.1 Albumin/Globulin Ratio 0.8 L Lipase 32 Serum , Qual NEGATIVE Urine Color Yellow Urine Clarity Sl. Cloudy Urine pH 6.0 Ur Specific [place] 1.015 Urine Protein 15 H Urine Glucose (UA) Normal Urine Ketones Negative Urine Occult Blood 10 H Urine Nitrite Negative Urine Bilirubin Negative Urine Urobilinogen Normal Ur Leukocyte Esterase Negative Urine RBC 0-5 SEEN Urine WBC 0 SEEN Ur Squamous Epith Cells 5-10 SEEN Urine Bacteria 0 SEEN Urine Mucus 0 SEEN Discharge Plan Triage Chief Complaint: Flank Pain ED Provider: Hansel Levy Dx/Rx/DC Orders Prescriptions: No Action ibuprofen 200 MG tablet 1 tab PO PRN PRN (Reason: Pain 1-10 Or Fever) albuterol sulfate [ProAir HFA] 90 mcg/actuation Hfa Aerosol Inhaler 1 inh INHALATION Q6H PRN (Reason: Shortness Of Breath) diphenhydramine HCl [Benadryl] 25 mg Capsule 25 mg PO TID PRN (Reason: Sleep) calcium carbonate [Tums] 300 mg (750 mg) Tablet,Chewable 300 mg PO TID PRN (Reason: Indigestion) Primary Care Provider: Padmini Osuna Referrals: Padmini Osuna MD [Primary Care Provider] -
[2023-03-13] MEDS: 0.9% Normal Saline 1,000 ML 1000 ML IV (13:55)
[2023-03-13] MEDS: Ondansetron 4 MG/2 ML Vial IV (13:55)
[2023-03-13 14:00] LABS: Bacteria 0 SEEN /hpf (None Seen); Mucous, Urine 0 SEEN /hpf (<or=2+); White Blood Cells 0 SEEN /hpf (0-5)
[2023-03-13 14:16] LABS: Color, Urine Yellow (Yellow); Glucose, Dipstick Normal (Normal); Ketone-Dipstick Negative (Negative); Leukocyte Esterase-Dipstick Negative /ul (Negative); Nitrite-Dipstick Negative (Negative); Occult Blood-Urine 10 /ul (Negative); Protein-Dipstick 15 mg/dl (Negative); Specific Gravity, Urine 1.015 (1.002-1.030); Urine Bilirubin Dipstick Negative (Negative); Urine Clarity Sl. Cloudy (Clear); Urine Urobilinogen Normal (Normal)
[2023-03-13 14:18] LABS: Internal QC Validated? YES +Cl - CLEAR BKGD; Pregnancy, Serum, hCG Quali. NEGATIVE Negative
[2023-03-13 14:25] LABS: Absolute Neutrophil Count 3.3 X10^3/uL (2.0-7.7); Eosinophil# 0.04 X10^3/uL; Eosinophils% 0.4 % (0-5); Hematocrit 44.1 % (37-47); Hemoglobin 14.2 g/dL (12.0-15.0); Lymphocyte % 61.7 % (19-41); Mean Corp Hgb Conc 32.2 g/dL (32-36); Mean Corpuscular Hgb 26.5 pg (27.0-32.0); Mean Corpuscular Volume 82.4 fL (81-99); Mean Platelet Vol. 9.3 fl (6.2-12.0); Monocyte# 0.44 X10^3/uL; Monocyte% 4.2 % (0-10); NRBC Flagged by Analyzer 0 % (0-5); Neutrophil # 3.29 X10^3/uL (2.7-7.7); Neutrophil % 31.6 % (47-70); POSITIVE DIFFERENTIAL YES; POSITIVE MORPHOLOGY YES; Platelet Count 247 K/mm3 (150-450); RBC Distribution Width CV 14.6 % (11.6-14.6); RBC Distribution Width SD 42.7 fl (35.1-43.9); Red Blood Count 5.35 M/mm3 (4.2-5.4); White Blood Count 10.4 K/mm3 (4.4-11.0)
[2023-03-13 14:26] LABS: Red Blood Cells-Urine 0-5 SEEN /hpf (0-5)
[2023-03-13 14:27] LABS: Differential Indicated SCAN CRITERIA MET; Squamous Epithelial Cells - UA 5-10 SEEN /hpf (5-10)
[2023-03-13 14:37] LABS: ALB/GLOB Ratio 0.8 RATIO (0.9-2.4); AST(SGOT) 66 U/L (15-37); Alanine Aminotransfer ALT/SGPT 79 U/L (13-56); Albumin, Serum 3.1 g/dL (3.2-5.0); Alkaline Phosphatase 83 U/L (45-117); Anion Gap 8 (5-15); BUN 5 mg/dL (7-18); BUN/Creat Ratio 5.6 RATIO (10-20); Calcium,Total 8.9 mg/dL (8.5-10.1); Chloride 105 mmol/L (98-107); Creatinine, Serum 0.89 mg/dL (0.55-1.02); EST Glomerular Filtration Rate 76 mL/min (>60); Est Glom Filt Rate - Afr Amer 92 mL/min (>60); Estimated Creatinine Clearance 78.63 ml/min; Globulin 4.1 g/dL (2.2-4.2); Glucose 151 mg/dL (74-106); Lipase 32 U/L (13-75); Potassium 3.8 mmol/L (3.5-5.1); Protein, Total 7.2 g/dL (6.4-8.2); Sodium Level 137 mmol/L (136-145)
[2023-03-13 14:47] LABS: Differential Comment SCANNED
--- NOTE | 2023-03-13 15:14 | CT_ITS ---
STUDY: CT Abdomen And Pelvis W/ Contrast Injection 03/13/2023 4:40 PM REASON FOR EXAM: Female, 37 years old. ABDOMINAL PAIN right sided abd pain TECHNIQUE: Transaxial images were obtained without oral contrast, and IV 100mL Isovue-370 intravenous contrast. Individualized dose optimization techniques were used for this CT. COMPARISON: None. FINDINGS: The visualized lung bases are unremarkable. The visualized portions of the heart are within normal limits. There is hepatomegaly with diffuse hepatic enlargement. Unremarkable gallbladder and extrahepatic biliary system. Unremarkable spleen. Unremarkable pancreas. Unremarkable bilateral adrenal glands. No acute findings of the right kidney. No acute findings of the left kidney. Focal wall thickening of the antrum of stomach. This can suggest a gastritis. Unremarkable small intestine. Unremarkable colon. The appendix is visualized and appears unremarkable. There are no acute findings of the abdominal aorta. Unremarkable inferior vena cava. Subcentimeter mesenteric lymph nodes. Multiple scattered mesenteric, cecal, periappendiceal, and periaortic lymph nodes. This can suggest mesenteric adenitis. Unremarkable urinary bladder. Normal visualized uterus. There is an umbilical hernia containing fat. Unremarkable osseous structures. CT/Abdomen/Pelvis W IV Cont ONLY IMPRESSION: (NOT LISTED IN ORDER OF SIGNIFICANCE) Enlarged liver. Gastritis. Multiple scattered mesenteric, cecal, periappendiceal, and periaortic lymph nodes. This can suggest mesenteric adenitis. Other findings as above. Electronically Signed: Pipo Neil MD at 16:43 EDT ,
[2023-03-13 15:27] VITALS: BP 142/78; PULSE 81; RESP 16; O2SAT 99
[2023-03-13] MEDS: Ondansetron ODT 4 MG Tablet PO (17:31)
== END 2023-03-13 17:33 | disposition home or self-care (01) ==
PROVIDERS: Emergency Provider Emergency Medicine; PCP Internal Medicine; Visit Provider Emergency Medicine
DX: R10.9 Unspecified abdominal pain (principal); Z87.891 Personal history of nicotine dependence; J45.909 Unspecified asthma, uncomplicated; Z79.899 Other long term (current) drug therapy; R11.2 Nausea with vomiting, unspecified
CPT/HCPCS: 74177; 76705; 80053; 81001; 83690; 84703; 85025; 96361; 96375; 96376; 99283; J7030; Q9967; J2405

== ENCOUNTER → 2023-04-03 | Outpatient (CLI) | payer OTHER, SELFPAY ==
--- NOTE | 2023-04-03 11:16 | NM_ITS ---
CLINICAL: 37-year-old female with history of right upper quadrant abdominal pain. RADIONUCLIDE HEPATOBILIARY SCINTIGRAPHY COMPARISON: CT of the abdomen-pelvis report 03/13/2023 FINDINGS: Following the intravenous administration of 5.1 mCi of Tc Mebrofenin, hepatobiliary images reveal:. 1. Relatively prompt and homogeneous radiopharmaceutical concentration is noted by a normal sized liver. No parenchymal defects are identified. 2. Gallbladder activity is identified at 10 minutes post radiopharmaceutical administration. 3. Small intestinal tract is observed at 30 minutes following tracer injection. 4. Washout of the radiopharmaceutical by the hepatic parenchyma appears qualitatively normal. 5. There is demonstrated pre-cholecystokinin duodenal-gastric reflux. Cholecystokinin (0.02 ug/kg) was administered intravenously over a 3-minute period. The post CCK gallbladder ejection fraction calculated at 20 minutes following Cholecystokinin administration was noted to be 90.0 % (normal greater than 35%). During 30 minutes of post CCK imaging, there is scintigraphic evidence of refilling of the gallbladder. There is persistent demonstration of duodenal-gastric reflux. [place]/Hepatobilliary Img w/Pharm Int IMPRESSION: 1. ABNORMAL 99m Tc Mebrofenin hepatobiliary imaging examination with Cholecystokinin. A. A gallbladder ejection fraction calculated to be greater than 35% following the administration of Cholecystokinin makes the probability of functional hepatobiliary disease (gallbladder and/or sphincter of Odii dyskinesia) and/or organic hepatobiliary disease (chronic acalculous cholecystitis and/or cystic duct syndrome) to be low. (Jovan Choi et al, Journal of Nuclear Medicine 32:1695, 1991). B. There is scintigraphic evidence of both pre and post cholecystokinin duodenal gastric reflux. Electronically Signed: Flako Aiken, at 22:21 EDT ,
== END | disposition home or self-care (01) ==
LOC: NM 11:15
PROVIDERS: PCP Internal Medicine; Referring Provider Internal Medicine; Visit Provider Internal Medicine
DX: R10.11 Right upper quadrant pain (principal)
CPT/HCPCS: 78227; A9537; J2805

== ENCOUNTER 2023-05-05 07:31 | Day surgery (SDC) | payer OTHER, SELFPAY ==
--- NOTE | 2023-05-05 | GASB_PTH ---
PATIENT: BILLIE HAN LOC: EN U#:[id number] AGE/SX: 38/F ROOM: RE05/05/[address]: Dr. Waylon Knott MD : 1985 BED: DIS: 05/05/2023 SPEC #: [id number] RECD: 05/05/23 12:54 STATUS: MARYAM FRANCISCO #: [id number] NEIL: 05/05/23 00:[address]: Waylon Knott DEPT: SURGICAL PATHOLOGY RECD BY: Sarath Thompson ENTERED: 05/05/23 12:54 SP TYPE: Gastric Bx OT DR: Dr. Padmini Osuna MD Tissues: A - Gastric mucous membrane B - Gastric mucous membrane Procedures: Special Stain Group II Surgery Specimen Level IV Alcian Blue/PAS (control) HEADER OPERATION: EGD with biopsies PRE-OP DIAGNOSIS: Thickened antrum TISSUE SUBMITTED: A - Antrum for H. pylori and path, B - Gastroesophageal junction MICROSCOPIC DIAGNOSIS A. Gastric antrum, biopsy: Chronic gastritis. Focal intestinal metaplasia. No evidence of dysplasia. See comment. B. Gastroesophageal junction, biopsy: Mild chronic inflammation. Changes consistent with reflux. 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 No evidence of dysplasia. See comment. AM:jay 05/08/2023 COMMENT A. The results of immunohistochemistry for Helicobacter pylori will be reported separately ([id number]). Immunohistochemistry ([id number]) for P53 and Ki-67 will be performed and results will be reported separately. Alcian blue/PAS stain with matched control supports the above diagnosis. B. Immunohistochemistry ([id number]) for P53 and Ki-67 will be performed and results will be reported separately. Alcian blue/PAS stain with matched control supports the above diagnosis. MICROSCOPIC DESCRIPTION Slides are reviewed. GROSS DESCRIPTION A - Received in fixative is one container labeled with the patient's name and designated antrum biopsy. The specimen consists of two irregular fragments of light copeland soft tissue that in aggregate measure 0.8 x 0.4 x 0.1 cm. The specimen is totally submitted in one cassette. B - Received in fixative is one container labeled with the patient's name and designated GE junction. The specimen consists of two irregular fragments of light copeland soft tissue that in aggregate measure 0.5 x 0.2 x 0.1 cm. The specimen is totally submitted in one cassette. / SJ:rg 05/05/2023 TC:3 CPT: 90603 x2, 85657 x2
[2023-05-05] MEDS: Lactated Ringers 1,000 ML 15 ML IV (07:53)
[2023-05-05 07:55] VITALS: BP 126/78; PULSE 84; RESP 18; TEMP 36.9; O2SAT 100; BMI 38.7
--- NOTE | 2023-05-05 08:22 | HP.PCM_ITS ---
History and Physical Date of Admission: 05/05/23 Intake Vital Signs 03/17/2309:37 04/13/2308:06 Height 5 ft 5 in 5 ft 5 in Weight: 246 lb 237 lb 2 oz BMI 40.9 39.4 BP 130/88 H 138/80 H Blood Pressure Location Lt brachial Rt brachial Position Sitting Sitting Respiration 16 16 Pulse 94 98 Pulse Source Monitor Monitor Temp 98.3 F 97.3 F L Temp Source Temporal Tympanic Pulse Oximetry (%) 97 98 Oxygen Delivery Method room air Intake Visit Reasons: GALLBLADDER CONCERNS Chief Complaint: [facility] ER FU Allergies Penicillins Allergy (Verified 04/13/23 08:08) Hives Medications ibuprofen 200 mg tablet 1 tab PO PRN PRN Pain 1-10 Or Fever 09/01/20 [History Confirmed 03/17/23] albuterol sulfate 90 mcg/actuation aerosol inhaler (ProAir HFA) 1 inh inhalation Q6H PRN Shortness Of Breath 09/07/21 [History Confirmed 03/17/23] diphenhydramine HCl 25 mg capsule (Benadryl) 25 mg PO TID PRN Sleep 02/03/22 [History Confirmed 03/17/23] calcium carbonate 300 mg (750 mg) chewable tablet (Tums) 300 mg PO TID PRN Indigestion 03/11/22 [History Confirmed 03/17/23] omeprazole 40 mg capsule,delayed release 40 mg PO DAILY 3 months #90 caps 03/17/23 [Rx Confirmed 03/17/23] [facility] Medical History Abnormal biliary HIDA scan Asthma Asthma Asthma Carpal tunnel syndrome Elevated liver enzymes Encounter for preventative adult health care examination Heartburn History of pilonidal cyst History of steroid therapy Leg cramps Preventative health care Restless legs RUQ pain Seasonal allergies Shortness of breath on exertion Surgical History H/O wisdom tooth extraction History of History of carpal tunnel release History of salpingectomy History of tonsillectomy Family History Mother Hypertension Arthritis Crohns diseaseGrandmother Breast cancer DiabetesGrandfather Heart disease Myocardial infarction, Onset Age: 70 Social History Smoking Status: Former smoker Tobacco: How many years used: 12 alcohol intake: never substance use type: does not use what type of physical activity do you participate in: none HPI HPI HPI: Patient is a 37-year-old female here because she came to the emergency room recently with right upper quadrant pain. She has not had any pain like that since her hospitalization back in February. She says that last week she did eat something greasy and did feel a little bit twinge in the right upper quadrant but other than that she has had no right upper quadrant pain since her visit. She was also started on a PPI at that time. ROS General General: Yes fatigue; No weight change, appetite, colon cancer, breast cancer or weakness HEENT HEENT: Yes swollen glands; No difficulty swallowing, eye injury, eye surgery or hoarseness Endo Endocrine: No thyroid disease, diabetes mellitus, thyroid cancer, Hair loss, heat intolerance or cold intolerance Skin Skin: No rash or changing moles Breast Breast: No left breast lump, right breast lump, nipple discharge, breast pain, abnormal mammogram, abnormal US or breast enlargement Musc Musculoskeletal: No back problems, arthritis, rheumatoid arthritis, gout or joint pain Cardio Cardiovascular: No murmur, pacemaker, heart disease, atrial fibrillation, high blood pressure, heart attack, heart stent, palpitations, shortness of breat with exertion or chest pain Psych Psychiatric: No depression, anxiety or hearing voices Resp Respiratory: No shortness of breath, No sleep apnea, No cough, No COPD, Yes asthma, No emphysema and No wheezing Gastro Gastrointestinal: Yes abdominal pain, Yes nausea or vomiting, Yes diarrhea, Yes constipation, No blood in stool, Yes acid reflux, No hemorrhoids, No ulcers, Yes gallbladder problem and No black,tarry stools Ajit Hematologic: No blood thinners, No blood disorders, No bleeding, No anemia and No blood clots Neuro Neurologic: No system reviewed and no additional complaints, except as documented, No as per HPI, No abnormal gait, No abnormal hearing, No abnormal movements, No abnormal speech, No behavioral changes, No burning sensations, No confusion, No convulsions, No disequilibrium, No dizziness, No localized weakness, No frequent falls, No headache(s), No lack of coordination, No loss of vision, No memory loss, No numbness, No other visual disturbances, No radicular pain, No restless legs, No sensory deficit, No syncope, No tingling, No tremor(s), No weakness and No other Exam Const General: cooperative Orientation: alert and oriented x3 HENMT Head: normal to inspection Neck Neck: normal visual inspection and full ROM Chest Chest palpation & inspection: normal inspection of the chest Resp Effort & Inspection: normal respiratory effort Auscultation: clear to auscultation bilaterally Cardio Rate: regular rate Rhythm: regular rhythm GI Inspection: non-distended Palpation: soft and nontender Skin General: no rashes or lesions noted Neuro General: patient alert and patient oriented x3 Extrem General: full ROM Psych Appearance: grossly normal Mental Status: mental status grossly normal Assessment and Plan Assessment and Plan (1) RUQ pain: Status: Acute (2) Abnormal biliary HIDA scan: Status: Acute Orders: Orders EGD Today R10.11 - Right upper quadrant pain Plan The patient had an episode of right upper quadrant pain but reports that it is better. She is not having right upper quadrant pain every time she has greasy foods. She had a HIDA which showed ejection fraction of 90%. I am unsure that this is the cause of her pain. There is also thickening of the antrum on the CT scan. She is on a PPI currently that was started recently. I rec to perform an EGD. I informed her that usually I would only remove her gallbladder in this instance if it is bothering her significantly and currently it seems like it is not the cause of much pain. I explained endoscopy in detail to the patient. I explained the risks including but not limited to stroke or heart attack with anesthesia, perforation of the GI tract, bleeding, infection. I explained that any of these could necessitate further emergency surgery. The patient understands and all questions were answered sufficiently. The patient wishes to proceed with procedure. Waylon Knott MD Pager: [facility] [address] [place] [address], [address] [place] [address] Office: I have examined the patient and the H&P has been reviewed. There are no clinical changes since date of exam.
--- NOTE | 2023-05-05 08:30 | IMM_PTH ---
PATIENT: BILLIE HAN LOC: EN U#:[id number] AGE/SX: 38/F ROOM: RE05/05/[address]: Dr. Waylon Knott MD : 1985 BED: DIS: 05/05/2023 SPEC #: [id number] RECD: 05/05/23 14:01 STATUS: MARYAM FRANCISCO #: [id number] NEIL: 05/05/23 08:[address]: Waylon Knott DEPT: IMMUNOHISTOCHEMISTRY RECD BY: Antonietta Hernandez ENTERED: 05/05/23 14:01 SP TYPE: IMMUNO OTHR DR: Dr. Padmini Osuna MD Tissues: A - Stomach, NOS B - Gastric mucous membrane Procedures: H Pylori (initial) P53 (initial) KI-67 (add) P53 (add) MOC-31 (add) PHYSICIAN & INSTITUTION [place] [phone] SPECIMEN INFORMATION: Tissue Source: A - Antrum biopsy, B - GE junction Clinical Info: Thickened antrum Specimen Number: [id number] A & B CPT code: 07828 x2, 71822 x5 METHODOLOGY: Deparaffinized sections of prefer/formalin-fixed tissue or PAP/DQ stained slides are incubated with monoclonal/polyclonal antibodies/oligonucleotide probes. Localization is made via biotin free immunoperoxidase method. Appropriate controls are performed and reacted as expected. Results on target cell population are indicated in the following table: RESULTS: ANTIBODY / CLONE RESULT Block A H Pylori (polyclonal) negative P53 (DO-7) positive, wild type pattern Ki-67 (30-9) positive MOC-31 (4561) positive Block B P53 (DO-7) positive, wild type pattern Ki-67 (30-9) positive, low MOC-31 (4561) positive These tests were developed and their performance characteristics determined by [facility]. They may not have been cleared or approved by the U.S. Food and Drug Administration. The FDA has determined that such clearance or approval is not necessary. The above immunohistochemical/dualISH markers are ordered and reviewed by the Pathologist. INTERPRETATION: A. Antrum, biopsy: Negative for Helicobacter pylori organisms. No evidence of dysplasia. B. Gastroesophageal junction, biopsy: No evidence of dysplasia. AM:jay 05/09/2023
--- NOTE | 2023-05-05 08:44 | OP.CCLET_ITS ---
05/05/2023 Padmini Osuna MD [address] [place] [address] [place] [address] Re : Upper GI endoscopy procedure for Torrie Shelton Dear Dr. Osuna This procedure was performed on Friday, May 05, 2023. My impressions and recommendations are as follows: Impressions : - Reflux esophagitis with no bleeding. Biopsied. - Normal stomach. - Normal examined duodenum. - Biopsies were taken with a cold forceps for Helicobacter pylori testing. Recommendations : - Discharge patient to home. - Resume previous diet. - Continue present medications. - Await pathology results. My findings are described in the full procedure note, which is enclosed. If I can be of further assistance, please feel free to contact me at Doctor phone number(s): , Work: . Sincerely, Waylon Knott MD 05/05/2023 8:44:14 AM This report has been signed electronically.
--- NOTE | 2023-05-05 08:44 | OP.EGD_ITS ---
Patient Name: Torrie Shelton Procedure Date: 05/05/2023 8:26 AM Date of : 1985 Age: 38 Procedure: Upper GI endoscopy Indications: Abdominal pain in the right upper quadrant, Abnormal CT of the GI tract Providers: Waylon Knott MD Referring MD: Padmini Osuna MD Medicines: Monitored Anesthesia Care Patient Profile: This is a 38 year old female. Refer to note in patient chart for documentation of history and physical. Complications: No immediate complications. Estimated blood loss: Minimal. Procedure: Pre-Anesthesia Assessment: - Prior to the procedure, a History and Physical was performed, and patient medications and allergies were reviewed. The patient's tolerance of previous anesthesia was also reviewed. The risks and benefits of the procedure and the sedation options and risks were discussed with the patient. All questions were answered, and informed consent was obtained. Prior Anticoagulants: The patient has taken no anticoagulant or antiplatelet agents. After reviewing the risks and benefits, the patient was deemed in satisfactory condition to undergo the procedure. After obtaining informed consent, the endoscope was passed under direct vision. Throughout the procedure, the patient's blood pressure, pulse, and oxygen saturations were monitored continuously. The Endoscope was introduced through the mouth, and advanced to the fourth part of duodenum. The upper GI endoscopy was accomplished without difficulty. The patient tolerated the procedure well. Scope In: 8:35:51 AM Scope Out: 8:39:48 AM Total Procedure Duration Time 0 hours 3 minutes 57 seconds Findings: Esophagitis with no bleeding was found at the lower esophageal sphincter. Biopsies were taken with a cold forceps for histology. The stomach was normal. The examined duodenum was normal. Biopsies were taken with a cold forceps in the gastric antrum for Helicobacter pylori testing. Impression: - Reflux esophagitis with no bleeding. Biopsied. - Normal stomach. - Normal examined duodenum. - Biopsies were taken with a cold forceps for Helicobacter pylori testing. Recommendation: - Discharge patient to home. - Resume previous diet. - Continue present medications. - Await pathology results. Procedure Code(s): --- Professional --- 66659, Esophagogastroduodenoscopy, flexible, transoral; with biopsy, single or multiple Diagnosis Code(s): --- Professional --- K21.00, Gastro-esophageal reflux disease with esophagitis, without bleeding R10.11, Right upper quadrant pain R93.3, Abnormal findings on diagnostic imaging of other parts of digestive tract CPT copyright 2021 [employer]. All rights reserved. The codes documented in this report are preliminary and upon power cleaner operator review may be revised to meet current compliance requirements. Waylon Knott MD 05/05/2023 8:44:14 AM This report has been signed electronically. Number of Addenda: 0 Note Initiated On: 05/05/2023 8:26 AM
[2023-05-05 08:45] VITALS: BP 122/76; BP 126/78; PULSE 92; RESP 16; TEMP 36.8; O2SAT 94
[2023-05-05 08:50] VITALS: BP 126/78; BP 138/75; PULSE 83; RESP 16; O2SAT 93
[2023-05-05 08:55] VITALS: BP 114/87; BP 126/78; PULSE 86; RESP 16; O2SAT 96
[2023-05-05 09:00] VITALS: BP 122/77; BP 126/78; PULSE 79; RESP 16; TEMP 36.8; O2SAT 94
[2023-05-05 09:28] VITALS: BP 126/78
== END 2023-05-05 09:47 | disposition home or self-care (01) ==
LOC: EN 07:32 → AC 07:33
PROVIDERS: PCP Internal Medicine; Referring Provider Internal Medicine; Visit Provider Surgery
PROC: 0DJ08ZZ Inspection of Upper Intestinal Tract, Via Natural or Artificial Opening Endoscopic (ICD-10-PCS; CPT 43235; principal; 2023-05-05 08:25)
DX: R10.11 Right upper quadrant pain (principal); K21.00 Gastro-esophageal reflux disease with esophagitis, without bleeding; Z87.891 Personal history of nicotine dependence; R93.3 Abnormal findings on diagnostic imaging of other parts of digestive tract
CPT/HCPCS: 43239; 81002; 88305; 88313; 88341; 88342; J7120; J2405

== ENCOUNTER → 2025-07-01 | Outpatient (CLI) | payer OTHER, SELFPAY ==
--- NOTE | 2025-07-01 07:51 | BI_ITS ---
EXAM: SCRN MAMM (CAD)W/BRYAN BILAT DATE: 07/01/2025 CLINICAL HISTORY: F, Age 40 y/o , SCREENING FOR BREAST CANCER Maternal grandmother with history of breast cancer. TECHNIQUE: Procedure Code: [id number] Modality: MG Procedure: SCRN MAMM (CAD)W/BRYAN BILAT COMPARISON: Baseline examination. FINDINGS: TISSUE DENSITY: There are scattered areas of fibroglandular density. Bilateral Breast Mammographic Findings: No significant masses, calcifications or other abnormalities are identified. No suspicious masses, areas of developing architectural distortion, or suspicious calcifications. BI/SCRN MAMM (CAD)W/BRYAN BILAT IMPRESSION: Unremarkable baseline screening mammogram. OVERALL FINAL ASSESSMENT BI-RADS 1: NEGATIVE. RECOMMENDATION: Routine annual follow-up in 1 Year Additional Recommendation none A letter with findings and recommendations will be mailed to the patient. Reading Location: [id number]
== END | disposition home or self-care (01) ==
LOC: OPBI 07:50
PROVIDERS: PCP Internal Medicine; Referring Provider Nurse Practitioner Women's Health; Visit Provider Nurse Practitioner Women's Health
DX: Z12.31 Encounter for screening mammogram for malignant neoplasm of breast (principal); Z80.3 Family history of malignant neoplasm of breast
CPT/HCPCS: 77063; 77067